=== PATIENT | male | born 1965 | race Caucasian/White ===

== ENCOUNTER 2018-08-09 20:21 | Emergency (ER) | payer OTHER ==
[2018-08-09 20:26] VITALS: BP 149/100; PULSE 98; TEMP 98.5; BMI 26.6
[2018-08-09] MEDS ORDERED: ACETAMINOPHEN 500 MG TABLET (FP) PO ONE (20:54)
--- NOTE | 2018-08-09 20:54 | PDOC ---
History of Present Illness - General History Source: Patient Exam Limitations: No Limitations - History of Present Illness Initial Comments: 08/09/18 21:05 A portion of this note was documented by scribe services under my direction. I have reviewed the details of the note, within reason, and agree with the documentation. The case summary and management plan written by me. Procedure note laceration repair: All the Lacerations were cleaned and closed with Dermabond patient tolerated well. Assessment and plan: This is a 53-year-old male who comes in with superficial lacerations to his fourth and fifth fingers that were sustained when he was using a scissors. Patient tetanus was not up to date his tetanus was updated and he was discharged home after his lacerations were closed with Dermabond. <Jen Vargas I - Last Filed: 08/09/18 21:05> - History of Present Illness Initial Comments: 08/09/18 21:08 The patient is a 53 year old male, with no significant past medical history, who presents to the emergency department with injury to his 4th and 5th fingers of his left hand sustained accidentally with a scissor this evening. He states he was trying to lilly plastic off of a jay with a scissor when the scissor slipped striking his left pinky and ring finger. He states the pinky He states he noticed bleeding. He states he noticed the tip of his left pinky was umb shortly after sustaining the injury. He states both tips of the 4th and 5th fingers on the left hand are slightly numb. He states he can fully range his digits, however, reports pain with flexion. The patient denies chest pain, shortness of breath, headache and dizziness. The patient denies fever, chills, nausea, vomit, diarrhea and constipation. The patient denies dysuria, frequency, urgency and hematuria. PAST MEDICAL HISTORY: no significant history PAST SURGICAL HISTORY: no significant history FAMILY HISTORY: no pertinent history SOCIAL HISTORY: Pt lives with family and is employed. MEDICATIONS: reviewed ALLERGIES: As per nursing notes ROS General: No fevers or chills, no weakness, no weight loss HEENT: No change in vision. No sore throat,. No ear pain CardioVascular: No chest pain or shortness of breath Respiratory:No cough, or wheezing. Gastrointestinal: no nausea, vomiting, diarrhea or constipation, No rectal bleeding Genitourinary: No dysuria, hematuria, or frequency Musculoskeletal: No joint or muscle pain or swelling Neurologic: No headache, vertigo, dizziness or loss of consciousness Psychiatric: nor depression Skin: (+) Lacerations to left 4th and 5th digits. No rashes or easy bruising Endocrine: no increased thirst or abnormal weight change Allergic: no skin or latex allergy All other systems reviewed and normal Physical Exam GENERAL: The patient is awake, alert, and fully oriented, in no acute distress. HEAD: Normal with no signs of trauma. EYES: Pupils equal, round and reactive to light, extraocular movements intact, sclera anicteric, conjunctiva clear. EXTREMITIES: Normal range of motion, no edema. NEUROLOGICAL: Normal speech, normal gait. PSYCH: Normal mood, normal affect. SKIN: (+) Left 5th digit has a 0.5cm superficial laceration over the lateral aspect of the distal phalanx and a 3.0mm superficial laceration to the left 5th digit medially. There is also a 0.5cm superficial laceration to the left 4th digit. Neurovascular distally intact. Warm, Dry, normal turgor, no rashes or lesions noted. <Zoie Ibanez - Last Filed: 08/09/18 21:09> - General Chief Complaint: Laceration Stated Complaint: LEFT 5TH FINGER LACERATION Time Seen by Provider: 08/09/18 20:42 Past History - Past Medical History COPD: No Psychiatric Problems: Yes (ADD) - Suicide/Smoking/Psychosocial Hx Smoking Status: Yes Smoking History: Former smoker Have you smoked in the past 12 months: No Number of Cigarettes Smoked Daily: 0 Information on smoking cessation initiated: No Hx Alcohol Use: (occasional) <Jen Vargas I - Last Filed: 08/09/18 21:05> <Zoie Ibanez - Last Filed: 08/09/18 21:09> - Past Medical History Allergies/Adverse Reactions: Allergies Allergy/AdvReac Type Severity Reaction Status Date / Time No Known Allergies Allergy Verified 08/09/18 20:22 Home Medications: Ambulatory Orders Lisdexamfetamine Dimesylate [Vyvanse] 20 mg PO DAILY 08/09/18 *Physical Exam - Vital Signs Last Vital Signs Temp Pulse Resp BP Pulse Ox 98.5 F 98 H 18 149/100 100 08/09/18 20:21 08/09/18 20:21 08/09/18 20:21 08/09/18 20:21 08/09/18 20:21 <Jen Vargas I - Last Filed: 08/09/18 21:05> - Vital Signs Last Vital Signs Temp Pulse Resp BP Pulse Ox 98.5 F 98 H 18 149/100 100 08/09/18 20:21 08/09/18 20:21 08/09/18 20:21 08/09/18 20:21 08/09/18 20:21 <Zoie Ibanez - Last Filed: 08/09/18 21:09> ED Treatment Course - Medications Given in the ED: ED Medications Discontinued Medications Generic Name Dose Route Start Last Admin Trade Name Cleopatra PRN Reason Stop Dose Admin Acetaminophen 1,000 mg 08/09/18 20:54 08/09/18 20:58 Tylenol - PO 08/09/18 20:55 1,000 mg ONCE ONE Administration Diphtheria/Tetanus/Acell Pertussis 0.5 ml 08/09/18 20:55 08/09/18 20:59 Boostrix - IM 08/09/18 20:56 0.5 ml ONCE ONE Administration <Zoie Ibanez - Last Filed: 08/09/18 21:09> *DC/Admit/Observation/Transfer <Jen Vargas I - Last Filed: 08/09/18 21:05> - Attestations Scribe Attestion: 08/09/18 21:09 Documentation prepared by Zoie Ibanez, acting as medical imaging technologist for Jen Vargas MD <Zoie Ibanez - Last Filed: 08/09/18 21:09> Diagnosis at time of Disposition: Finger laceration Qualifiers: Encounter type: initial encounter Finger: ring finger Damage to nail status: without damage Foreign body presence: without foreign body Laterality: left Qualified Code(s): S61.215A - Laceration without foreign body of left ring finger without damage to nail, initial encounter Laceration of little finger Qualifiers: Encounter type: initial encounter Damage to nail status: without damage Foreign body presence: without foreign body Laterality: left Qualified Code(s): S61.217A - Laceration without foreign body of left little finger without damage to nail, initial encounter - Discharge Dispostion Disposition: HOME Condition at time of disposition: Stable - Referrals Referrals: Ashutosh Haile [Primary Care Provider] - - Patient Instructions Printed Discharge Instructions: DI for Laceration Repair With Dermabond Additional Instructions: Read over and follow the Dermabond instructions do not use any petroleum-based products or ointment on the laceration as it will cause the blue to come off early Keep the laceration dry for 72 hours. Return to the emergency department immediately with ANY new, persistent or worsening symptoms. Continue any medications as previously prescribed by your physician. You should follow up with your primary doctor as soon as possible regarding today's emergency department visit. . Please make sure your doctor reviews the results of your emergency evaluation. Thank you for coming to the Emergency Department today for your care. It was a pleasure to see you today. Please note that your evaluation is INCOMPLETE until you follow-up with your doctor. - Post Discharge Activity
[2018-08-09] MEDS ORDERED: DIPHTH,PERTUSS(ACELL),TET 0.5 ML DISP.SYRIN IM ONE (20:55)
[2018-08-09] MEDS ORDERED: ACETAMINOPHEN 500 MG TABLET (FP) ONE (20:55)
== END 2018-08-09 21:14 | disposition home or self-care (01) ==
LOC: FER 20:21
PROC: 3E0234Z Introduction of Serum, Toxoid and Vaccine into Muscle, Percutaneous Approach (ICD-10-PCS; principal; 2018-08-09)
DX: S61.215A Laceration without foreign body of left ring finger without damage to nail, initial encounter (principal); S61.217A Laceration without foreign body of left little finger without damage to nail, initial encounter; W45.8XXA Other foreign body or object entering through skin, initial encounter; Y93.89 Activity, other specified; Y92.89 Other specified places as the place of occurrence of the external cause; Z87.891 Personal history of nicotine dependence; F98.8 Other specified behavioral and emotional disorders with onset usually occurring in childhood and adolescence
CPT/HCPCS: 90715; 99284-25

== ENCOUNTER 2019-01-16 20:27 | Emergency (ER) | payer OTHER ==
[2019-01-16 20:35] VITALS: BP 144/78; PULSE 83; TEMP 98.3
--- NOTE | 2019-01-16 21:42 | PDOC ---
History of Present Illness - General History Source: Patient Exam Limitations: No Limitations - History of Present Illness Initial Comments: 01/16/19 21:46 The patient is a 53 year old male, with no significant past medical history of who presents to the emergency department with a laceration of the scalp prior to his ED arrival. The patient states he was pulling down the attic stairs and the metal jay attached to the stairs became loose and skimmed his head. The patient states he wrapped his head in a cloth and washed it with water. The patient denies LOC or hitting his skull. The patient denies fever, chills, nausea, vomit, diarrhea or constipation. The patient denies dysuria, frequency, urgency or hematuria. Allergies: NKDA Past surgical history: None reported Social history: None reported PCP: Ashutosh Del Cid <Mariam Ramírez - Last Filed: 01/16/19 21:46> <Angela Stack - Last Filed: 01/17/19 04:31> - General Chief Complaint: Injury Stated Complaint: HIT IN HEAD WITH ATTIC STAIRS Time Seen by Provider: 01/16/19 20:48 Past History <Mariam Ramírez - Last Filed: 01/16/19 21:46> - Past Medical History COPD: No Psychiatric Problems: Yes (ADD) - Immunization History Immunization Up to Date: Yes - Suicide/Smoking/Psychosocial Hx Smoking Status: Yes Smoking History: Never smoked Have you smoked in the past 12 months: No Number of Cigarettes Smoked Daily: 0 Information on smoking cessation initiated: No Hx Alcohol Use: No Drug/Substance Use Hx: No <Angela Stack - Last Filed: 01/17/19 04:31> - Past Medical History Allergies/Adverse Reactions: Allergies Allergy/AdvReac Type Severity Reaction Status Date / Time No Known Allergies Allergy Verified 01/16/19 20:29 Home Medications: Ambulatory Orders Lisdexamfetamine Dimesylate [Vyvanse] 20 mg PO DAILY 08/09/18 Review of Systems - Review of Systems Able to Perform ROS?: Yes Comments:: 01/16/19 21:47 GENERAL/CONSTITUTIONAL: No fever or chills. No weakness. HEAD, EYES, EARS, NOSE AND THROAT: (+) scalp laceration. No change in vision. No ear pain or discharge. No sore throat. CARDIOVASCULAR:No chest pain or shortness of breath. RESPIRATORY: No cough, wheezing, or hemoptysis. GASTROINTESTINAL: No nausea, vomiting, diarrhea or constipation. GENITOURINARY: No dysuria, frequency, or change in urination. MUSCULOSKELETAL:No joint or muscle swelling or pain. No neck or back pain. SKIN: No rash NEUROLOGIC: No headache, vertigo, loss of consciousness, or change in strength/ sensation. ENDOCRINE: No increased thirst. No abnormal weight change. HEMATOLOGIC/LYMPHATIC: No anemia, easy bleeding, or history of blood clots. ALLERGIC/IMMUNOLOGIC: No hives or skin allergy. All Other Systems: Reviewed and Negative <Mariam Ramírez - Last Filed: 01/16/19 21:46> *Physical Exam - Vital Signs Last Vital Signs Temp Pulse Resp BP Pulse Ox 98.3 F 83 16 144/78 98 01/16/19 20:31 01/16/19 20:31 01/16/19 20:31 01/16/19 20:31 01/16/19 20:31 - Physical Exam Comments: 01/16/19 21:47 GENERAL: Awake, alert, and fully oriented, in no acute distress HEAD: (+) 1.5cm flap type laceration of R temporal scalp non bleeding. EYES: PERRLA, EOMI, sclera anicteric, conjunctiva clear ENT: Auricles normal inspection, hearing grossly normal, nares patent, oropharynx clear without exudates. Moist mucosa NECK: Normal ROM, supple, no lymphadenopathy, JVD, or masses LUNGS: Breath sounds equal, clear to auscultation bilaterally. No wheezes, and no crackles HEART: Regular rate and rhythm, normal S1 and S2, no murmurs, rubs or gallops ABDOMEN: Soft, nontender, normoactive bowel sounds. No guarding, no rebound. No masses EXTREMITIES: Normal range of motion, no edema. No clubbing or cyanosis. No cords, erythema, or tenderness NEUROLOGICAL: Cranial nerves II through XII grossly intact. Normal speech, normal gait SKIN: Warm, Dry, normal turgor, no rashes or lesions noted. <Mariam Ramírez - Last Filed: 01/16/19 21:46> - Vital Signs Last Vital Signs Temp Pulse Resp BP Pulse Ox 98.3 F 83 16 144/78 98 03/25/19 20:31 01/16/19 20:31 01/16/19 20:31 01/16/19 20:31 01/16/19 20:31 <Angela Stack - Last Filed: 01/17/19 04:31> Procedures - Laceration/Wound Repair Right Anterior Head Wound Length: to 2.5 cm Wound Explored: clean Wound's Depth, Shape: flap Irrigated w/ Saline: Yes Betadine Prep: No Anesthesia: 1% Lidocaine Amount of Anesthetic (ccs): 2 Wound Debrided: moderate Wound Repaired With: Rochelle Progress: Area is around scalp laceration cleansed using Hibiclens/ethanol solution. 2 mL of 1% lidocaine infused into the wound for local anesthesia. Wound irrigated using 30 mL of sterile normal saline. Wound edges placed close together and wound closed with 4 interrupted rochelle. Bacitracin ointment placed on wound. <Angela Stack - Last Filed: 01/17/19 04:31> Progress Note - Progress Note Progress Note: Documentation has been prepared under my direction and personally reviewed by me in its entirety. I attest that this documented accurately reflects all work, treatment, procedures and medical decision making performed by me. <Angela Stack - Last Filed: 01/17/19 04:31> Medical Decision Making - Medical Decision Making As noted above, this 53-year-old man sustained a small laceration to the right temporal scalp is prior to presentation when a portion of the drop down attic staircase became loose and scraped the right scalp of the patient when he attempted to bring the staircase down. No other injury and patient did not have loss of consciousness. Area of laceration was cleansed and repaired as noted above. Patient discharged from emergency room with instructions to apply bacitracin daily to the cut/head elevated on extra pillow at night and to have rochelle removed in approximately one week. <Angela Stack - Last Filed: 01/17/19 04:31> *DC/Admit/Observation/Transfer - Attestations Scribe Attestion: 01/16/19 21:47 Documentation prepared by Mariam Ramírez, acting as medical insurance biller for Angela Stack MD <Mariam Ramírez - Last Filed: 01/16/19 21:46> <Angela Stack - Last Filed: 01/17/19 04:31> Diagnosis at time of Disposition: Scalp laceration Qualifiers: Encounter type: initial encounter Qualified Code(s): S01.01XA - Laceration without foreign body of scalp, initial encounter - Discharge Dispostion Disposition: HOME Condition at time of disposition: Stable - Patient Instructions Printed Discharge Instructions: DI for Laceration Repair of the Scalp Additional Instructions: Keep head elevated and an extra pillow for the next 2 nights Bacitracin to scalp wound twice a day until rochelle removed Acetaminophen as needed for pain for the first 48 hours, then ibuprofen/ acetaminophen/naproxen as needed Keep scalp dry as possible for full 24 hours then can wash normally Return to ER if you have severe headache/nausea/vomiting or excessive sleepiness Return here or see your doctor to have rochelle removed in one week
== END 2019-01-16 21:48 | disposition home or self-care (01) ==
LOC: FER 20:27
PROC: 0HQ0XZZ Repair Scalp Skin, External Approach (ICD-10-PCS; principal; 2019-01-16)
DX: S01.01XA Laceration without foreign body of scalp, initial encounter (principal); W20.8XXA Other cause of strike by thrown, projected or falling object, initial encounter; Y93.89 Activity, other specified; Y92.008 Other place in unspecified non-institutional (private) residence as the place of occurrence of the external cause
CPT/HCPCS: 99281-25

== ENCOUNTER 2019-01-25 17:47 | Emergency (ER) | payer OTHER ==
[2019-01-25 17:54] VITALS: BP 137/78; PULSE 74; TEMP 98.8; BMI 26.6
--- NOTE | 2019-01-25 18:00 | PDOC ---
Suture Removal/Wound Check HPI - History of Present Illness Chief Complaint: Suture/Staple Removal(Here) Stated Complaint: staple removal from head Time Seen by Provider: 01/25/19 17:59 - Onset of Previous Treatment Comment:: 01/25/19 18:05 Rochelle removed right parietal scalp 3 Wound well-healed. No sign infection Bacitracin applied. Follow-up as necessary Past History - Past Medical History Allergies/Adverse Reactions: Allergies Allergy/AdvReac Type Severity Reaction Status Date / Time No Known Allergies Allergy Verified 01/25/19 17:50 Home Medications: Ambulatory Orders NK [No Known Home Medication] 01/25/19 COPD: No Psychiatric Problems: Yes (ADD) - Immunization History Immunization Up to Date: Yes - Suicide/Smoking/Psychosocial Hx Smoking Status: Yes Smoking History: Never smoked Have you smoked in the past 12 months: No Number of Cigarettes Smoked Daily: 0 Information on smoking cessation initiated: No Hx Alcohol Use: No Drug/Substance Use Hx: No *Physical Exam - Vital Signs Last Vital Signs Temp Pulse Resp BP Pulse Ox 98.8 F 74 16 137/78 100 01/25/19 17:48 01/25/19 17:48 01/25/19 17:48 01/25/19 17:48 01/25/19 17:48 *DC/Admit/Observation/Transfer Diagnosis at time of Disposition: Encounter for staple removal - Discharge Dispostion Disposition: HOME Condition at time of disposition: Improved Decision to Admit order: No - Referrals - Patient Instructions Printed Discharge Instructions: DI for Suture Removal - Post Discharge Activity
== END 2019-01-25 18:08 | disposition home or self-care (01) ==
LOC: FER 17:47
DX: Z48.02 Encounter for removal of sutures (principal)
CPT/HCPCS: 99281-25

== ENCOUNTER 2022-01-09 18:52 | Emergency (ER) | payer BC ==
[2022-01-09 19:04] VITALS: BP 140/92; PULSE 87; TEMP 98.6; BMI 27.7
== END 2022-01-09 20:24 | disposition home or self-care (01) ==
LOC: FER 18:52
DX: M65.332 Trigger finger, left middle finger (principal)
CPT/HCPCS: 73130-TC-LT-FY; 99283-25